=== PATIENT | female | born 1995 | race Caucasian/White ===

== ENCOUNTER 2018-07-21 02:29 | Emergency (ER) | payer MEDICAID, OTHER ==
[~2018-07-21] VITALS: Ht 180.3 cm; Wt 72.6 kg
--- NOTE | 2018-07-21 03:16 | ED Integumentary General ---
General Chief Complaint: Bite-Animal/Human/Insect Stated Complaint: WELTS ON RIGHT ARM Nursing Triage Note: Patient states that she woke up at 0800 on 07/20/18 and had 2 insect bites on her right forearm. Patient states that she did find a brown recluse spider in the bed she was sleeping in, in the middle of the night. Patient is unsure if she was bitten by a spider or a different bug. Bite areas are red, swollen and warm to the touch. Patient rates her pain at a 5. Source: patient History of Present Illness Date Seen by Provider: Jul 21, 2018 Time Seen by Provider: 03:16 Initial Comments 23 yo F presents to the ED with complaints of swelling, redness and pain to right forearm. This had gotten worse overnight but has been present over the last 2 days. she feels they got worse since going out in a pontoon boat yesterday. She also had killed a brown recluse spider in bed the night before. She is unsure what had originally bit her to cause the symptoms. She has not usually had so many bites but these all came up from sitting on the porch visiting with family when she got to [facility] this weekend. They have swollen up and gotten very red and itchy quickly. She has no fever or chills. She has noticed some redness starting to track up her right forearm along with the increased pain and swelling this morning. Allergies and Home Medications Allergies Coded Allergies: No Known Drug Allergies (Unverified , 07/21/18) Home Medications Cephalexin 500 Mg Tablet, 500 MG PO TID Prescribed by: TRAY HILARIO on 07/21/18 0340 Ibuprofen 800 Mg Tablet, 800 MG PO Q8H PRN for PAIN Prescribed by: TRAY HILARIO on 07/21/18 0340 Patient Home Medication List Home Medication List Reviewed: Yes Review of Systems Review of Systems Constitutional: see HPI EENTM: no symptoms reported Respiratory: no symptoms reported Cardiovascular: no symptoms reported Gastrointestinal: no symptoms reported Genitourinary: no symptoms reported Musculoskeletal: see HPI Skin: see HPI Psychiatric/Neurological: Anxiety Endocrine: No Symptoms Reported Past Fdgwjzy-Sgxgwp-Kripgn Hx Past Med/Social Hx: Reviewed Nursing Past Med/Soc Hx Patient Social History Alcohol Use: Denies Use Recreational Drug Use: No Smoking Status: Never a Smoker 2nd Hand Smoke Exposure: No Recent Foreign Travel: No Contact w/Someone Who Travel: No Recent Infectious Disease Expo: No Recent Hopitalizations: No Physical Abuse: No Sexual Abuse: No Mistreated: No Fear: No Seasonal Allergies Seasonal Allergies: No Past Medical History Surgeries: No Respiratory: No Cardiac: No Neurological: No : No CAR BLOCKER History: IUD Genitourinary: No Gastrointestinal: No Musculoskeletal: No Endocrine: No HEENT: No Cancer: No Psychosocial: No Integumentary: No Blood Disorders: No Physical Exam Vital Signs Vital Signs - First Documented 07/21/18 02:37 Temp 98.0 Pulse 69 Resp 18 B/P (MAP) 126/89 (101) Pulse Ox 97 O2 Delivery Room Air Capillary Refill : Less Than 3 Seconds General Appearance: WD/WN, no apparent distress HEENT: PERRL/EOMI, pharynx normal Neck: non-tender, full range of motion, supple, normal inspection Cardiovascular: normal peripheral pulses, regular rate, rhythm Respiratory: chest non-tender, lungs clear, normal breath sounds Extremities: normal range of motion, normal capillary refill, inflammation (right forearm with several red indurated areas with central papules consistent with bites), swelling Neurologic/Psychiatric: alert, normal mood/affect, oriented x 3 Skin: warm/dry, other (erythema to several areas on RUE) Progress/Results/Core Measures Results/Orders My Orders Orders - TRAY HILARIO MD Cephalexin Capsule (Keflex Capsule) (07/21/18 03:35) Diphenhydramine Tablet (Benadryl Tablet) (07/21/18 03:35) Ibuprofen Tablet (Motrin Tablet) (07/21/18 03:35) Vital Signs/I&O 07/21/18 07/21/18 02:37 03:43 Temp 98.0 98.0 Pulse 69 69 Resp 18 18 B/P (MAP) 126/89 (101) 126/89 (101) Pulse Ox 97 97 O2 Delivery Room Air Room Air Blood Pressure Mean: 101 Progress Progress Note : Progress Note treat with antibiotics and antihistamines for hypersensitivity reaction to bug bites but also secondary infection from scratching at the bites. Departure Impression Primary Impression: Insect bite - wound Qualified Codes: S50.861A - Insect bite (nonvenomous) of right forearm, initial encounter; W57.XXXA - Bitten or stung by nonvenomous insect and other nonvenomous arthropods, initial encounter Additional Impression: Cellulitis of right forearm Disposition: 01 HOME, SELF-CARE Condition: Stable Departure-Patient Inst. Decision time for Depature: 03:37 Referrals: NO,LOCAL PHYSICIAN (PCP/Family) Primary Care Physician Patient Instructions: Insect Bites and Stings (DC), Cellulitis (Skin Infection), Adult (DC) Add. Discharge Instructions: Take antibiotics until gone May take Diphenhydramine (Benadryl) 25-50 mg every 6 hours as needed for itching, redness and swelling Ibuprofen (Advil, Motrin) 800 mg every 8 hours as needed for pain and swelling Check with clinic if not improving by Sunday or Sunday All discharge instructions reviewed with patient and/or family. Voiced understanding. Scripts Cephalexin (Cephalexin) 500 Mg Tablet 500 MG PO TID for cellulitis for 10 Days, #30 TAB 0 Refills Prov: TRYA HILARIO MD 07/21/18 Ibuprofen (Ibuprofen) 800 Mg Tablet 800 MG PO Q8H PRN for PAIN for 10 Days, #30 TAB 0 Refills Prov: TRAY HILARIO MD 07/21/18 TRAY HILARIO MD Jul 21, 2018 03:16
[2018-07-21] MEDS ORDERED: diphenhydrAMINE 25 MG TAB (BENADRYL) PO STA (03:35)
[2018-07-21] MEDS ORDERED: IBUPROFEN 800 MG (MOTRIN) TAB PO STA (03:35)
[2018-07-21] MEDS ORDERED: CEPHALEXIN 250 MG (KEFLEX) CAP PO STA (03:35)
[2018-07-21] MEDS ORDERED: IBUP-1780 PO (03:40)
[2018-07-21] MEDS ORDERED: CEPH500T PO (03:40)
[2018-07-21 03:43] VITALS: BP 126/89
== END 2018-07-21 03:43 | disposition home or self-care (01) ==
LOC: ER FS 02:33
DX: S50.861A Insect bite (nonvenomous) of right forearm, initial encounter (principal); L03.113 Cellulitis of right upper limb; Z97.5 Presence of (intrauterine) contraceptive device; W57.XXXA Bitten or stung by nonvenomous insect and other nonvenomous arthropods, initial encounter
CPT/HCPCS: 99283

== ENCOUNTER → 2021-08-11 | Outpatient (CLI) | payer MEDICAID ==
[~2021-08-11] MED LIST: CEPH500T PO; IBUP-1780 PO
== END ==
LOC: LABNPT 15:30
PROVIDERS: ATTEND Family Medicine
DX: N39.0 Urinary tract infection, site not specified (principal)
CPT/HCPCS: 87077; 87088; 87186

== ENCOUNTER → 2021-08-30 | Outpatient (CLI) | payer MEDICAID ==
[2021-08-30 14:44] LABS: HEMATOCRIT 40 % (35-52); HEMOGLOBIN 14.2 g/dL (11.5-16.0); MEAN CORPUSCULAR HEMOGLOBIN 33 pg (25-34); MEAN CORPUSCULAR HGB CONC 36 g/dL (32-36); MEAN CORPUSCULAR VOLUME 93 fL (80-99); MEAN PLATELET VOLUME 11.2 fL (9.0-12.2); PLATELET COUNT 192 10^3/uL (130-400)
== END ==
LOC: LAB FS 14:00
PROVIDERS: ATTEND Family Medicine
DX: Z34.91 Encounter for supervision of normal pregnancy, unspecified, first trimester (principal); Z3A.08 8 weeks gestation of pregnancy
CPT/HCPCS: 36415; 80055; 85027; 87088; 87389

== ENCOUNTER → 2021-09-27 | Outpatient (CLI) | payer MEDICAID | LOC: LABNPT 15:01 | PROVIDERS: ATTEND Family Medicine | DX: Z34.91 Encounter for supervision of normal pregnancy, unspecified, first trimester (principal); Z33.1 Pregnant state, incidental; Z3A.00 Weeks of gestation of pregnancy not specified | CPT/HCPCS: 87491; 87591 ==

== ENCOUNTER 2022-03-01 16:09 | Outpatient (CLI) | payer MEDICAID, OTHER ==
[~2022-03-01 16:09] MED LIST changes: -PREN-172 PO
[2022-03-01] MEDS ORDERED: PREN-172 PO (16:20)
[2022-03-01 16:32] VITALS: BP 123/74
[2022-03-01 17:10] VITALS: BP 123/74
--- NOTE | 2022-03-02 08:37 | Physician Query-Final Dx ---
JAME03/02/22 0837: Clinic Account Progress/Dx Physician Query: Please give diagnosis Please include # weeks gestation Date of Service Mar 01, 2022 at 16:09 RENA VIERA DO 03/02/22 1353: Clinic Account Progress/Dx DIAGNOSIS: Diagnosis 35 week IUP Irregular contractions JAME,FebMar 02, 2022 08:37 RENA VIERA DO Mar 02, 2022 13:53
== END 2022-03-01 17:10 | disposition home or self-care (01) ==
LOC: WSo 16:09 → LDRP 16:10 → WSo 17:10
PROVIDERS: ATTEND Obstetrics & Gynecology
DX: O47.03 False labor before 37 completed weeks of gestation, third trimester (principal); Z3A.35 35 weeks gestation of pregnancy
CPT/HCPCS: 99213

== ENCOUNTER → 2022-03-01 | Outpatient (CLI) | payer MEDICAID, OTHER ==
[~2022-03-01] MED LIST changes: +PREN-172 PO
== END ==
LOC: LABNPT 15:46
PROVIDERS: ATTEND Family Medicine
DX: Z01.89 Encounter for other specified special examinations (principal)
CPT/HCPCS: 87081

== ENCOUNTER 2022-03-08 20:21 | Inpatient (IN) | payer MEDICAID ==
[~2022-03-08] VITALS: Ht 180.3 cm; Wt 76.7 kg
[~2022-03-08 20:21] MED LIST changes: +PREN-172 PO
[2022-03-08 20:34] VITALS: BP 132/71
[2022-03-08 20:48] LABS: BILIRUBIN,URINE NEGATIVE (NEGATIVE); CLARITY,URINE CLEAR; COLOR,URINE YELLOW; GLUCOSE, URINE (UA) NEGATIVE (NEGATIVE); KETONES,URINE 1+ (NEGATIVE); LEUKOCYTE ESTERASE ,URINE TRACE (NEGATIVE); NITRITE,URINE NEGATIVE (NEGATIVE); PH,URINE 5.5 (5-9); PROTEIN,URINE NEGATIVE (NEGATIVE)
[2022-03-08 21:03] LABS: BACTERIA,URINE TRACE /HPF; SQUAMOUS EPITHELIAL CELL,UR 0-2 /HPF; WBC,URINE RARE /HPF
[2022-03-08] MEDS ORDERED: morphine INJ 10 MG/ML 1ML (SYR OR VIAL) IVP ONE (21:45)
[2022-03-08] MEDS ORDERED: morphine INJ 10 MG/ML 1ML (SYR OR VIAL) IM ONE (21:45)
[2022-03-08] MEDS ORDERED: D5 LR IV SOLUTION 1,000 ML IV ONE (21:51)
[2022-03-08] MEDS ORDERED: AMPICILLIN FOR IV USE 2,000 MG in NS (IVPB) 50 ML IV SCH (21:52)
[2022-03-08] MEDS ORDERED: ACETAMINOPHEN 500 MG TAB (TYLENOL) ONE (21:52)
[2022-03-08] MEDS: D5 LR IV SOLUTION 1,000 ML IV SCH (21:58)
[2022-03-08] MEDS ORDERED: ACETAMINOPHEN 500 MG TAB (TYLENOL) PO PRN (22:00)
[2022-03-08] MEDS ORDERED: CATHETER FLUSH 10 ML SYR IV SCH (22:00)
[2022-03-08 22:34] LABS: BASOPHILS % (AUTO) 0 % (0-10); EOSINOPHILS # (AUTO) 0.2 10^3/uL (0.0-0.3); EOSINOPHILS % (AUTO) 1 % (0-10); HEMATOCRIT 38 % (35-52); HEMOGLOBIN 13.3 g/dL (11.5-16.0); LYMPHOCYTES % (AUTO) 14 % (12-44); MEAN CORPUSCULAR HEMOGLOBIN 31 pg (25-34); MEAN CORPUSCULAR HGB CONC 35 g/dL (32-36); MEAN CORPUSCULAR VOLUME 90 fL (80-99); MEAN PLATELET VOLUME 11.8 fL (9.0-12.2); MONOCYTES # (AUTO) 0.9 10^3/uL (0.0-1.0); MONOCYTES % (AUTO) 6 % (0-12); NEUTROPHILS # (AUTO) 11.4 10^3/uL (1.8-7.8); NEUTROPHILS % (AUTO) 78 % (42-75); PLATELET COUNT 226 10^3/uL (130-400); WHITE BLOOD COUNT 14.6 10^3/uL (4.3-11.0)
[2022-03-08 23:07] VITALS: BP 115/74
[2022-03-08 23:08] LABS: BAND NEUTROPHILS 4 %; BASOPHILS % (MANUAL) 0 %; EOSINOPHILS % (MANUAL) 0 %; LYMPHOCYTES % (MANUAL) 8 %; MONOCYTES % (MANUAL) 8 %; NEUTROPHILS % (MANUAL) 80 %; RBC MORPH NORMAL
[2022-03-09] VITALS (73 sets, daily range): BP systolic 96–155; BP diastolic 51–107
[2022-03-09] MEDS ORDERED: morphine INJ 10 MG/ML 1ML (SYR OR VIAL) ONE ×2 (00:06)
[2022-03-09] MEDS ORDERED: AMPICILLIN FOR IV USE 1,000 MG in NS (IVPB) 50 ML IV SCH (02:00)
[2022-03-09] MEDS: D5 LR IV SOLUTION 1,000 ML IV SCH ×2 (05:33→10:35)
--- NOTE | 2022-03-09 08:53 | History & Physical-OB ---
OB - Chief Complaint & HPI Date/Time Date of Admission: Date of Admission: Mar 08, 2022 at 21:43 Date seen by a Provider: Mar 09, 2022 Time Seen by a Provider: 08:40 Chief Complaint/History OB-Reason for Admission/Chief: Labor Hx : 4 Hx Para: 2 Expected Date of Delivery: Apr 06, 2022 Gestational Age in Weeks: 36 Gestational Age in Days: 0 Admission Nurse Assessment Rev: Yes History of Labs A pos Antibody neg RI RPR NR HBsAg NR HIV NR GC neg GBS pending Allergies and Home Medications Allergies Coded Allergies: No Known Drug Allergies (Unverified , 07/21/18) Patient Home Medication List Home Medication List Reviewed: Yes Vit No.179/Iron/Folic ( Tablet) 28 Mg Iron-800 Mcg Tablet, 1 EACH PO DAILY, (Reported) Entered as Reported by: PATRICIA DOOLEY on 03/01/22 3010 Last Action: Reviewed OB - History Hx of Present Care: Yes Ultrasounds: Normal mid trimester US Obstetrical Complications: None Medical Complications: None Obstetrical History Hx : 4 Hx Para: 2 Hx Total # of Abortions (Spona: 1 Patient Past Medical History n/a Social History/Family History Alcohol Use: Denies Use Recreational Drug Use: No 2nd Hand Smoke Exposure: No Immunizations Influenza Vaccine Up-to-Date: Yes; Up-to-Date OB - Admission Exam Physical Exam Vitals: Vital Signs 03/09/22 03/09/22 01:07 03:07 Pulse 84 Resp 18 B/P (MAP) 121/71 (88) Pulse Ox 96 O2 Delivery Room Air HEENT: NCAT Heart: Rhythm Normal Lungs: Clear Abdomen: Gravid Extremities: Normal Reflexes: Normal Cervical Dilatation: 6cm Effacement: 75% Station: -1 Membranes: Intact Heart Rate: 130's Accelerations: Accelerations Present Decelerations: No Decelerations Short Term Variability: Present Penitentiary Variability: Average (6-25) Contractions on Admission: < 5 Minutes Apart Intensity: Moderate Labs Laboratory Tests Test 03/08/22 20:30 03/08/22 21:45 Range/Units Urine Color YELLOW Urine Clarity CLEAR Urine pH 5.5 5-9 Urine Specific [place] >=1.030 1.016-1.022 Urine Protein NEGATIVE NEGATIVE Urine Glucose (UA) NEGATIVE NEGATIVE Urine Ketones 1+ H NEGATIVE Urine Nitrite NEGATIVE NEGATIVE Urine Bilirubin NEGATIVE NEGATIVE Urine Urobilinogen 0.2 < = 1.0 MG/DL Urine Leukocyte Esterase TRACE H NEGATIVE Urine RBC (Auto) NEGATIVE NEGATIVE Urine RBC NONE /HPF Urine WBC RARE /HPF Urine Squamous Epithelial Cells 0-2 /HPF Urine Crystals NONE /LPF Urine Bacteria TRACE /HPF Urine Casts NONE /LPF Urine Mucus NEGATIVE /LPF Urine Culture Indicated NO White Blood Count 14.6 H 4.3-11.0 10^3/uL Red Blood Count 4.23 3.80-5.11 10^6/uL Hemoglobin 13.3 11.5-16.0 g/dL Hematocrit 38 35-52 % Mean Corpuscular Volume 90 80-99 fL Mean Corpuscular Hemoglobin 31 25-34 pg Mean Corpuscular Hemoglobin Concent 35 32-36 g/dL Red Cell Distribution Width 12.9 10.0-14.5 % Platelet Count 226 130-400 10^3/uL Mean Platelet Volume 11.8 9.0-12.2 fL Immature Granulocyte % (Auto) 0 % Neutrophils (%) (Auto) 78 H 42-75 % Lymphocytes (%) (Auto) 14 12-44 % Monocytes (%) (Auto) 6 0-12 % Eosinophils (%) (Auto) 1 0-10 % Basophils (%) (Auto) 0 0-10 % Neutrophils # (Auto) 11.4 H 1.8-7.8 10^3/uL Lymphocytes # (Auto) 2.0 1.0-4.0 10^3/uL Monocytes # (Auto) 0.9 0.0-1.0 10^3/uL Eosinophils # (Auto) 0.2 0.0-0.3 10^3/uL Basophils # (Auto) 0.0 0.0-0.1 10^3/uL Immature Granulocyte # (Auto) 0.1 0.0-0.1 10^3/uL Neutrophils % (Manual) 80 % Lymphocytes % (Manual) 8 % Monocytes % (Manual) 8 % Eosinophils % (Manual) 0 % Basophils % (Manual) 0 % Band Neutrophils 4 % Blood Morphology Comment NORMAL OB - Assessment/Plan/Diagnosis Assessment Assessment: labor Admission Dx 26 yo @ 36 weeks PTL GBS unknown Admission Status: Inpatient Order (span 2 midnights) Reason for Inpatient Admission: 36 week labor Plan Plan: Expectant Management (June this AM if continues to make change. Treating GBS prophylaxis) RENA VIERA DO Mar 09, 2022 08:53
[2022-03-09] MEDS ORDERED: fentaNYL 2 mcg/ml BUPIVA 0.125 100 ML ONE (08:54)
[2022-03-09] MEDS ORDERED: LACTATED RINGERS 1,000 ML IV ONE ×2 (08:54→10:45)
[2022-03-09] MEDS ORDERED: OXYTOCIN PRE-MIX DRIP 500 ML IV ONE ×2 (09:03→13:53)
[2022-03-09] MEDS ORDERED: fentaNYL INJ 100 MCG/2 ML AMP ONE (09:07)
[2022-03-09] MEDS ORDERED: BUPIVACAINE 0.25% 10 ML (SENSORCAINE) VIAL ONE (09:07)
[2022-03-09] MEDS ORDERED: ONDANSETRON 4 MG/2 ML (SDV) Z0FRAN IV PRN (10:45)
[2022-03-09] MEDS ORDERED: diphenhydrAMINE 50 MG/ML INJ (BENADRYL) IV PRN (10:45)
[2022-03-09] MEDS ORDERED: NALOXONE 0.4 MG/ML 1 ML (NARCAN) VIAL IV PRN ×2 (10:45→13:45)
[2022-03-09] MEDS ORDERED: fentaNYL 2 mcg/ml BUPIVA 0.125 100 ML IV SCH (10:45)
[2022-03-09] MEDS ORDERED: CATHETER FLUSH 10 ML SYR IV PRN (10:45)
[2022-03-09] MEDS ORDERED: METHYLERGONOVINE 0.2 MG/ML (METHERGINE) AMP ONE (13:24)
[2022-03-09] MEDS ORDERED: WITCH HAZEL(TUCKS) 40 EA JAR TOP PRN (13:45)
[2022-03-09] MEDS ORDERED: DIBUCAINE 1% OINTMENT 28 GM TUBE TOP PRN (13:45)
[2022-03-09] MEDS ORDERED: MEASLES,MUMPS,RUBELLA 1 EA INJ SQ ONE (13:45)
[2022-03-09] MEDS ORDERED: OXYTOCIN PRE-MIX DRIP 500 ML IV SCH (13:45)
[2022-03-09] MEDS ORDERED: BENZOCAINE/MENTHOL (DERMOPLAST) 56 ML CAN TP PRN (13:45)
[2022-03-09] MEDS ORDERED: TETANUS,DIPTH,PERTUSS P/F (BOOSTRIX) 0.5 ML VIAL IM ONE (13:45)
--- NOTE | 2022-03-09 13:53 | OB Labor & Delivery Record ---
L&D History Date of Service Date of Service: Mar 09, 2022 History Expected Date of Delivery: Apr 06, 2022 Gestational Age in Weeks: 36 Hx : 4 Hx Para: 2 Complications Events: Labor <37 wks (received betamethasone dosing at ) Operative Indications (Cesarea: N/A-Vaginal Delivery Intrapartal Events: None L&D Stage1 Stage One Onset of Labor - Date: Mar 09, 2022 Monitors and Tracing Monitor Mode: External Heart Rate: 125 Monitor Decelerations: Variable Station: +1 Correction Variability: Average (6-10) Short Term Variability: Present Presentation: Vertex Vital Signs VS - Last 72 Hours, by Label 03/08/22 03/08/22 03/08/22 03/09/22 20:34 20:34 23:07 00:07 Temp 36.5 36.5 Pulse 103 103 93 85 Resp 18 18 18 18 B/P (MAP) 132/71 132/71 (91) 115/74 (88) 127/78 (94) Pulse Ox 97 97 O2 Delivery Room Air Room Air Room Air Room Air 03/09/22 03/09/22 03/09/22 03/09/22 01:07 02:07 03:07 08:12 Pulse 86 85 84 80 Resp 18 18 18 18 B/P (MAP) 118/71 (87) 111/72 (85) 121/71 (88) 120/78 (92) Pulse Ox 96 O2 Delivery Room Air Room Air Room Air Room Air Rupture of Membranes Spontaneous Ruture of Membrane: No Amniotic Membrane Rupture Time: 0824 Amniotic Membrane Fluid Desc.: Clear Vaginal Bleeding Description: Normal Show Induction/Anesthesia Epidural Cath Placement - Time: 920 Progress/Notes Patient admitted last night 4-5 cm, made change overnight to 6 cm this AM and received prophylaxis antibiotics for GBS. AROM performed this am followed by epidural placement and she rapidly progressed to complete and + 2 station. L&D Stage2 Stage Two Stage II Date: Mar 09, 2022 Monitors and Tracing Monitor Mode: External Heart Rate: 125 Monitor Decelerations: Variable Correction Variability: Average (6-10) Short Term Variability: Present Position: Right Occiput Anterior Presentation: Vertex Cord Descript/Complications Cord Vessel Description: 3 Vessels Delivery Type Delivery Method: Spontaneous Vaginal Anterior Shoulder: Left Episiotomy/Perineal Laceration Laceraction(s)/Extensions: No Condition of Infant Delivery 1 minute Comment: 9 5 minute Comment: 9 Notes Live male weight 6lbs 9 oz Condition of Infant Condition of : Living Exam: No Observed Abnormalities Resuscitation Resuscitation: N/A - Spontaneous Resp L&D Stage3 Stage Three Stage III Date: Mar 09, 2022 Pictocin Pitocin Administration Comment: 30 mu wide open after delivery of placenta a gentle curettage done of the endometrium, and methergine given IM. Placenta Delivery Placenta Delivery: Manual Delivery Summary Summary Estimated blood loss (mL): 350 Attending at delivery: Rena Viera DO Condition of Delivery Examined: Cervix Examined, Uterus Explored Post Hemorrhage: No Condition of Mother stable Condition of Infant (s) stable RENA VIERA DO Mar 09, 2022 13:53
--- NOTE | 2022-03-09 13:57 | Discharge Inst-Women's Service ---
Discharge Inst-Women's Serv Depart Medication/Instructions New, Converted or Re-Newed RX: Transmitted to Pharmacy Final Diagnosis PPD 1 NVD Problems Reviewed?: Yes Consults/Follow Up Additional Follow Up: Yes Orders/Referrals Dr. Viera in 6 weeks Activity Activity: Activity as Tolerated Driving Instructions: No Driving for 1 Week NO SMOKING: NO SMOKING Nothing Inside Vagina: No Douching, No [place], No Tampons Diet Discharge Diet: No Restrictions Symptoms to Report to : Bleeding Excessive, Pain Increased, Fever Over 101 Degrees F, Vaginal Bleeding Increase, Questions/Concerns For Any Problems or Questions: Contact Your Physician RENA VIERA DO Mar 09, 2022 13:57
[2022-03-09] MEDS ORDERED: IBUP-844 PO (13:58)
[2022-03-09] MEDS ORDERED: ACET-93 PO (13:58)
[2022-03-09] MEDS ORDERED: FERR325T24 PO (13:58)
[2022-03-09] MEDS ORDERED: DOCU100C37 PO (13:58)
[2022-03-09] MEDS ORDERED: CATHETER FLUSH 10 ML SYR IV SCH (14:00)
[2022-03-09] MEDS: IBUPROFEN 600 MG (MOTRIN) TAB PO SCH ×2 (16:52→21:55)
[2022-03-09] MEDS: HYDROcodone/APAP 5 MG/325 MG (LORTAB) TAB PO PRN (19:41)
[2022-03-09] MEDS: DOCUSATE SODIUM 100 MG (COLACE) CAP PO SCH (21:55)
[2022-03-10 00:15] VITALS: BP 116/62
[2022-03-10] MEDS: HYDROcodone/APAP 5 MG/325 MG (LORTAB) TAB PO PRN (00:17)
[2022-03-10 03:02] VITALS: BP 115/59
[2022-03-10] MEDS: IBUPROFEN 600 MG (MOTRIN) TAB PO SCH ×4 (03:04→21:23)
[2022-03-10 05:40] LABS: BASOPHILS # (AUTO) 0.1 10^3/uL (0.0-0.1); BASOPHILS % (AUTO) 0 % (0-10); EOSINOPHILS # (AUTO) 0.2 10^3/uL (0.0-0.3); EOSINOPHILS % (AUTO) 1 % (0-10); HEMATOCRIT 32 % (35-52); HEMOGLOBIN 10.7 g/dL (11.5-16.0); LYMPHOCYTES # (AUTO) 1.7 10^3/uL (1.0-4.0); LYMPHOCYTES % (AUTO) 12 % (12-44); MEAN CORPUSCULAR HEMOGLOBIN 31 pg (25-34); MEAN CORPUSCULAR HGB CONC 33 g/dL (32-36); MEAN CORPUSCULAR VOLUME 92 fL (80-99); MEAN PLATELET VOLUME 11.4 fL (9.0-12.2); MONOCYTES # (AUTO) 1.2 10^3/uL (0.0-1.0); MONOCYTES % (AUTO) 9 % (0-12); NEUTROPHILS # (AUTO) 10.6 10^3/uL (1.8-7.8); NEUTROPHILS % (AUTO) 77 % (42-75); PLATELET COUNT 177 10^3/uL (130-400); WHITE BLOOD COUNT 13.8 10^3/uL (4.3-11.0)
[2022-03-10] MEDS ORDERED: PRENATAL VITAMIN 1 EA TAB PO SCH (07:00)
--- NOTE | 2022-03-10 07:30 | Postpartum Progress Note ---
Note Note Day # 1 Subjective: Patient is without complaints. Ambulating, voiding. Tolerating a regular diet without nausea or vomiting. Normal lochia. Pain is well controlled with oral pain medications. Objective: Physical Exam: General - Alert and oriented, no apparent distress Abdomen - Soft, appropriately tender to palpation, non-distended, fundus firm at umbilicus Extremities - no edema, negative Chrissy's bilaterally Assessment: PPD 1 NVD Plan: Routine care. Encourage breast feeding. Encourage ambulation. Ferrous sulfate supplementation. Plan for discharge today Vitals - Labs Vital Signs - I&O Vital Signs Date Time Temp Pulse Resp B/P (MAP) Pulse Ox O2 Delivery O2 Flow Rate FiO2 03/10/22 03:02 36.3 74 18 115/59 (77) 98 Room Air 03/10/22 00:15 36.7 89 18 116/62 (80) 97 Room Air 03/09/22 19:37 36.6 96 18 118/59 (78) 99 Room Air 03/09/22 16:02 36.2 160 18 118/61 (80) 03/09/22 15:09 97 18 119/76 (90) 03/09/22 14:54 101 18 124/69 (87) 03/09/22 14:39 96 18 120/80 (93) 03/09/22 14:24 104 18 130/68 (88) 03/09/22 14:09 36.6 99 18 132/58 (82) 03/09/22 13:55 37.0 99 18 110/56 (74) 03/09/22 13:42 36.6 115 18 129/60 (83) 03/09/22 13:36 36.4 116 18 132/107 (115) 03/09/22 13:25 100 18 118/59 (78) 100 Room Air 03/09/22 13:20 91 18 105/60 (75) 100 Room Air 03/09/22 13:10 130 18 127/58 (81) 100 Room Air 03/09/22 13:05 118 18 130/67 (88) 100 Room Air 03/09/22 13:00 108 18 122/62 (82) 99 Room Air 03/09/22 12:57 110 18 120/66 (84) 100 Room Air 03/09/22 12:53 93 18 111/63 (79) 99 Room Air 03/09/22 12:50 105 18 118/64 (82) 99 Room Air 03/09/22 12:45 97 18 116/70 (85) 100 Room Air 03/09/22 12:40 88 18 118/67 (84) 100 Room Air 03/09/22 12:37 108 18 119/64 (82) 100 Room Air 03/09/22 12:33 108 18 132/60 (84) 100 Room Air 03/09/22 12:30 97 18 129/56 (80) 100 Room Air 03/09/22 12:25 104 18 127/74 (91) 98 Room Air 03/09/22 12:20 104 18 117/65 (82) 100 Room Air 03/09/22 12:17 89 18 122/64 (83) 99 Room Air 03/09/22 12:13 86 18 126/66 (86) 100 Room Air 03/09/22 12:10 100 18 123/62 (82) 100 Room Air 03/09/22 12:05 98 18 117/61 (79) 99 Room Air 03/09/22 12:00 77 18 116/57 (76) 98 Room Air 03/09/22 11:56 77 18 116/59 (78) 98 Room Air 03/09/22 11:52 93 18 115/69 (84) 99 Room Air 03/09/22 11:50 36.5 99 18 113/62 (79) 99 Room Air 03/09/22 11:44 100 18 113/60 (77) 99 Room Air 03/09/22 11:40 84 18 115/62 (79) 99 Room Air 03/09/22 11:36 106 18 119/60 (79) 99 Room Air 03/09/22 11:33 101 18 118/64 (82) 100 Room Air 03/09/22 11:30 93 18 118/63 (81) 100 Room Air 03/09/22 11:24 96 18 120/67 (84) 99 Room Air 03/09/22 11:20 93 18 119/71 (87) 99 Room Air 03/09/22 11:16 84 18 115/71 (86) 99 Room Air 03/09/22 11:13 96 18 119/75 (90) 100 Room Air 03/09/22 11:10 106 18 130/82 (98) 100 Room Air 03/09/22 11:05 108 18 126/68 (87) 100 Room Air 03/09/22 10:57 36.4 100 18 123/75 (91) 100 Room Air 03/09/22 10:53 100 18 130/91 (104) 93 Room Air 03/09/22 10:50 130 18 130/89 (103) 100 Room Air 03/09/22 10:41 106 18 122/60 (80) 100 Room Air 03/09/22 10:37 117 18 130/68 (88) 100 Room Air 03/09/22 10:33 96 18 126/63 (84) 100 Room Air 03/09/22 10:30 98 18 127/70 (89) 100 Room Air 03/09/22 10:25 90 18 133/78 (96) 100 Room Air 03/09/22 10:22 92 18 127/77 (94) 100 Room Air 03/09/22 10:18 83 18 96/51 (66) 100 Room Air 03/09/22 10:14 90 18 104/56 (72) 100 Room Air 03/09/22 10:10 106 18 155/64 (94) 100 Room Air 03/09/22 10:05 117 18 128/78 (95) 100 Room Air 03/09/22 10:00 96 18 120/68 (85) 94 Room Air 03/09/22 09:57 109 18 117/66 (83) 100 Room Air 03/09/22 09:54 96 18 130/76 (94) 100 Room Air 03/09/22 09:49 88 18 131/79 (96) 100 Room Air 03/09/22 09:44 104 18 121/71 (88) 99 Room Air 03/09/22 09:40 129 18 137/59 (85) 99 Room Air 03/09/22 09:34 92 18 122/66 (84) 99 Room Air 03/09/22 09:30 99 18 115/69 (84) 99 Room Air 03/09/22 09:24 89 18 113/61 (78) 100 Room Air 03/09/22 09:20 36.3 88 18 123/65 (84) 100 Room Air 03/09/22 09:17 84 18 128/77 (94) 99 Room Air 03/09/22 08:12 80 18 120/78 (92) Room Air I & O 03/10/22 07:00 Intake Total 2850 ml Balance 2850 ml Labs Laboratory Tests 03/10/22 05:23: White Blood Count 13.8H, Red Blood Count 3.49L, Hemoglobin 10.7L, Hematocrit 32L , Mean Corpuscular Volume 92, Mean Corpuscular Hemoglobin 31, Mean Corpuscular Hemoglobin Concent 33, Red Cell Distribution Width 13.0, Platelet Count 177, Mean Platelet Volume 11.4, Immature Granulocyte % (Auto) 0, Neutrophils (%) (Auto) 77H, Lymphocytes (%) (Auto) 12, Monocytes (%) (Auto) 9, Eosinophils (%) (Auto) 1, Basophils (%) (Auto) 0, Neutrophils # (Auto) 10.6H, Lymphocytes # (Auto) 1.7, Monocytes # (Auto) 1.2H, Eosinophils # (Auto) 0.2, Basophils # (Auto) 0.1, Immature Granulocyte # (Auto) 0.1 RENA VIERA DO Mar 10, 2022 07:30
[2022-03-10 08:36] VITALS: BP 142/62
[2022-03-10] MEDS: DOCUSATE SODIUM 100 MG (COLACE) CAP PO SCH ×2 (08:36→21:22)
[2022-03-10] MEDS ORDERED: FERROUS SULF 325 MG (IRON) TAB PO SCH (09:00)
--- NOTE | 2022-03-10 10:21 | Anesthesia-Regional Post-Op ---
Regional Patient Condition Mental Status: Alert, Oriented x3 Circulation: Same as Pre-Op Headache: Absent Sensation: Full Recovery Motor Block: Absent Post Op Complications Complications None Follow Up Care/Instructions Patient Instructions None needed. Anesthesia/Patient Condition Patient is doing well, no complaints, stable vital signs, no apparent adverse anesthesia problems. No complications reported per nursing. DEBBY MARTINEZ CRNA Mar 10, 2022 10:20
[2022-03-10 14:54] VITALS: BP 117/71
[2022-03-10 21:25] VITALS: BP 118/67
== END 2022-03-10 21:30 | disposition home or self-care (01) | DRG 807 ==
LOC: WSo 20:21 → LDRP 20:21 → WSo 21:35 → LDRP 21:43
PROVIDERS: ADMIT Obstetrics & Gynecology; ATTEND Obstetrics & Gynecology
PROC: 10E0XZZ Delivery of Products of Conception, External Approach (ICD-10-PCS; principal; 2022-03-09)
PROC: 10907ZC Drainage of Amniotic Fluid, Therapeutic from Products of Conception, Via Natural or Artificial Opening (ICD-10-PCS; 2022-03-09)
PROC: 3E033VJ Introduction of Other Hormone into Peripheral Vein, Percutaneous Approach (ICD-10-PCS; 2022-03-09)
DX: O60.14X0 Preterm labor third trimester with preterm delivery third trimester, not applicable or unspecified (principal); Z37.0 Single live birth; Z3A.36 36 weeks gestation of pregnancy
CPT/HCPCS: 36415; 81000; 85007; 85025; 85027; 86780; 86850; 86900; 86901; 99212